=== PATIENT | male | born 1930 | race Caucasian/White ===

== ENCOUNTER 2018-11-25 16:34 | Inpatient (IN) | payer MEDICARE, OTHER ==
[~2018-11-25] VITALS: Ht 170.2 cm; Wt 74.8 kg
--- NOTE | 2018-11-25 16:57 | NUR ---
PT WAS SENT TO ER FROM [facility].
[2018-11-25 17:09] LABS: BASOPHILS # (AUTO) 0.1 K/uL (0.0-8.0); BASOPHILS % (AUTO) 1.2 % (0.0-2.0); EOSINOPHILS # (AUTO) 0.2 K/uL (0.0-0.7); EOSINOPHILS % (AUTO) 2.1 % (0.0-7.0); HEMOGLOBIN 14.3 g/dL (12.5-16.3); LYMPHOCYTES # (AUTO) 1.5 K/uL (20.0-40.0); LYMPHOCYTES % (AUTO) 15.5 % (20.5-51.5); MEAN CORPUSCULAR HGB CONC 33 g/dL (32.5-36.3); MEAN CORPUSCULAR VOLUME 96.3 fL (73.0-96.2); MONOCYTES # (AUTO) 0.8 K/uL (2.0-10.0); MONOCYTES % (AUTO) 8.4 % (0.0-11.0); NEUTROPHILS # (AUTO) 6.9 K/uL (1.8-8.9); NEUTROPHILS % (AUTO) 72.8 % (38.5-71.5); PLATELET COUNT (AUTO) 209 K/uL (152-348); RED BLOOD CELL COUNT(AUTO) 4.46 MIL/uL (4.06-5.63); WHITE BLOOD COUNT (AUTO) 9.4 K/uL (3.6-10.2)
[2018-11-25 17:12] LABS: CARBON DIOXIDE 25 mmol/L (21-32); CHLORIDE 108 mmol/L (98-107); GLUCOSE 109 mg/dL (74-106); POTASSIUM 4.6 mmol/L (3.5-5.1); UREA NITROGEN, BLOOD 24 mg/dL (7-18)
[2018-11-25] MEDS ORDERED: LATA2.5D2 EACHEYE ×2 (17:12)
[2018-11-25] MEDS ORDERED: TAMS-3 PO (17:12)
[2018-11-25] MEDS ORDERED: ONDA4TAB5 PO (17:12)
[2018-11-25] MEDS ORDERED: WARF6TAB23 PO (17:12)
[2018-11-25] MEDS ORDERED: WARF2.5T47 PO (17:12)
[2018-11-25] MEDS ORDERED: LORA-259 PO (17:12)
[2018-11-25] MEDS ORDERED: LEVO25TA9 PO (17:12)
[2018-11-25] MEDS ORDERED: METO50TA16 PO (17:12)
[2018-11-25] MEDS ORDERED: DIVA500T4 PO (17:12)
[2018-11-25] MEDS ORDERED: ATOR20TA PO (17:12)
[2018-11-25] MEDS ORDERED: ALBU2.5V38 IH (17:12)
--- NOTE | 2018-11-25 17:15 | NUR ---
Patient wanded & checked by data security administrator Adrian for contraband/dangerous objects.
[2018-11-25 17:17] LABS: ALANINE AMINOTRANSFERASE 30 U/L (16-63); ALKALINE PHOSPHATASE 66 U/L (50-136); ASPARTATE AMINOTRANSFERASE 20 U/L (15-37); BILIRUBIN,DIRECT 0.1 mg/dL (0.0-0.2); BILIRUBIN,TOTAL 0.5 mg/dL (0.2-1.0)
[2018-11-25 17:18] LABS: ACETAMINOPHEN < 2.0 ug/mL (10-30)
[2018-11-25 17:19] LABS: ETHANOL < 3 MG/DL (0-0)
--- NOTE | 2018-11-25 17:20 | NUR ---
Patient is sleeping, easily arousable by voice, oriented to name only, calm@the moment, pending urine specimen, medical clearance & psych evalaution@this time. No in & out urine catheterization order seen. Dr Zhong notified of possible incontinence.
--- NOTE | 2018-11-25 17:39 | NUR ---
AMIE GALLAGHER, CRISIS GLOBAL PROFESSIONAL, ETA 1900.
--- NOTE | 2018-11-25 18:16 | NUR ---
Dinner tray@bedside.
--- NOTE | 2018-11-25 19:09 | NUR ---
Still for Clem Moore to assess this patient, hands off report given to NANCY Arevalo accordingly
[2018-11-25 19:15] LABS: *BILIRUBIN,URIN NEGATIVE (NEGATIVE); *CLARITY,URINE CLEAR (CLEAR); *COLOR,URINE YELLOW (YELLOW); *KETONES,URINE NEGATIVE (NEGATIVE); *UROBILINOGEN,URINE 0.2 E.U./dl (NORMAL); LEUKOCYTE ESTERASE ,URINE NEGATIVE (NEGATIVE); NITRITE, URINE NEGATIVE (NEGATIVE); UGLUCOSE NEGATIVE (NEGATIVE)
[2018-11-25 19:16] LABS: *BLOOD, URINE TRACE (NEGATIVE)
[2018-11-25 19:26] LABS: *AMPHETAMINE, URINE NEGATIVE (NEGATIVE); *BARBITURATE, URINE NEGATIVE (NEGATIVE); *CANNABINOID, URINE NEGATIVE (NEGATIVE); *COCCAINE, URINE NEGATIVE (NEGATIVE); *OPIATE, URINE NEGATIVE (NEGATIVE); *PHENCYCLIDINE SCREEN,URINE NEGATIVE (NEGATIVE); MUCUS,URINE FEW /LPF (0-FEW); WBC,URINE 0-3 /HPF (0-3)
--- NOTE | 2018-11-25 20:48 | NUR ---
transfered to [facility] via shaye
[2018-11-25] MEDS ORDERED: MAGNESIUM HYDROXIDE 30 ML LIQUID UDC PO PRN (21:00)
[2018-11-25] MEDS ORDERED: ACETAMINOPHEN 325 MG TABLET PO PRN (21:00)
[2018-11-25] MEDS ORDERED: MAG HYDROX/AL HYDROX/SIMETH 30 ML LIQUID UDC PO PRN (21:00)
--- NOTE | 2018-11-25 21:30 | NUR ---
Admission note: Received patient from ED via gurney. Awake but totally confused, disoriented and uncooperative. Multiple attempts made to orient and redirect , but slowly showing signs of escalation. Patient assessed and put in chair where staff could keep patient close and safe. Sleeping pill given to patient with minimal effect. A increase in agitation noted and patient yelling and disrupting unit.
[2018-11-25] MEDS: TEMAZEPAM 7.5 MG CAPSULE PO PRN (22:30)
[2018-11-25 22:44] VITALS: BP 109/70
[2018-11-26] MEDS ORDERED: diphenhydrAMINE 50 MG/1 ML VIAL IM ONE (01:00)
[2018-11-26] MEDS ORDERED: OLANZAPINE 10 MG VIAL IM ONE (01:00)
[2018-11-26] MEDS ORDERED: LORAZEPAM 2 MG/1 ML VIAL IM ONE (01:00)
--- NOTE | 2018-11-26 02:00 | NUR ---
Patient extremely agitated and confused. Trying to hit staff with food tray. Yelling and screaming, paranoid and making statements " get out of here now " and " call the laborer general ". Many attempts made to calm patient. Offered medication and patient refused. MD notified and orders received for an IM injection. Patient tolerated injection well. Continuing to monitor patient for safety and reorient patient to environment.
[2018-11-26 07:30] VITALS: BP 104/74
[2018-11-26] MEDS ORDERED: ONDANSETRON HCL 4 MG TABLET PO PRN (12:00)
[2018-11-26] MEDS ORDERED: ALBUTEROL SULFATE 2.5 MG/3 ML NEBU IH PRN (12:00)
[2018-11-26] MEDS: DIVALPROEX SPRINKLE 125 MG CAP.SPRINK PO SCH ×2 (12:15→20:28)
[2018-11-26] MEDS: QUETIAPINE FUMARATE 25 MG TABLET PO SCH ×2 (12:16→18:26)
--- NOTE | 2018-11-26 13:07 | NUR ---
DC NOTE: Patient is a 87 year old male who currently lives at [facility] [[address], [place] [address]; ]. Per Sayra, patient daughter in law [ ], she would like patient to be in a larger facility where he can "walk around". Patient previously in small, locked unit. garden worker will attempt to find new placement for patient if able to accommodate. garden worker will continue to collaborate with patient, family, and MD on a safe and proper discharge. Addendum: 11/26/18 at 1317 by SONNY PADILLA garden worker spoke with Darshana, case coordinator at [facility], who states that patient is able to return when ready.
[2018-11-26] MEDS: CLONAZEPAM 0.5 MG TABLET PO PRN (15:16)
[2018-11-26 16:00] VITALS: BP 90/54
[2018-11-26] MEDS: METOPROLOL TARTRATE 50 MG TABLET PO SCH (17:00)
--- NOTE | 2018-11-26 18:14 | NUR ---
Gps/Nurse'S Assistant- Patient will be transfer to 3rd floor #306 as MHU overflow. Remains with a sitter for safety.
[2018-11-26] MEDS: WARFARIN SODIUM 5 MG TABLET PO SCH (18:25)
[2018-11-26] MEDS: WARFARIN SODIUM 2 MG TABLET PO SCH (18:26)
[2018-11-26 19:25] VITALS: BP 110/64
--- NOTE | 2018-11-26 19:30 | NUR ---
RECEIVED PATIENT FROM THE DAY SHIFT. PATIENT CAME ON THE UNIT FROM U AT 1850. CURRENTLY IN BED SLEEPING, SITTER AT BEDSIDE. COMFORT AND SAFETY MEASURE ARE IN PLACE.
[2018-11-26 20:15] VITALS: BP 103/41
[2018-11-26] MEDS: ATORVASTATIN 20 MG TABLET PO SCH (20:28)
[2018-11-26] MEDS: LATANOPROST OPHT DROP 2.5 ML BOTTLE EACHEYE SCH (20:45)
[2018-11-26] MEDS ORDERED: WARFARIN SODIUM 2.5 MG TABLET PO SCH (21:00)
--- NOTE | 2018-11-27 04:30 | NUR ---
PATIENT WOKE UP, WANT TO USE THE BATHROOM. UNSTEADY GAIT, SITTER ASSISTED SAFELY TO THE TOILET AND BACK. PATIENT IS ALERT AND ORIENTED TO PERSON ONLY, DOES NOT RECALL COMING TO THE HOSPITAL. DRANK A CUP OF OJ AND WENT TO SLEEP. CALM AND COOPERATIVE. SKIN IS DRY AND INTACT. APPEARS BLIND OR SEVERELY IMPAIRED VISUALLY. SITTER IS PRESENT AT BEDSIDE. COMFORT AND SAFETY MEASURES ARE IN PLACE.
[2018-11-27] MEDS: LEVOTHYROXINE SODIUM 25 MCG TABLET PO SCH (06:13)
--- NOTE | 2018-11-27 06:32 | NUR ---
PATIENT SLEPT THROUGH THE SHIFT. NO ACUTE DISTRESS OBSERVED. SITTER IS AT BEDSIDE. COMFORT AND SAFETY MEASURES PROVIDED.
--- NOTE | 2018-11-27 07:25 | NUR ---
Patient resting comfortably in bed at this time. 1:1 sitter at bedside for safety. No signs of distress. Stable condition at this time. No signs of agitation. Reorientation will be provided as needed throughout shift. Safety measures implemented. Will continue to monitor throughout shift.
[2018-11-27] MEDS: DIVALPROEX SPRINKLE 125 MG CAP.SPRINK PO SCH ×2 (08:23→20:30)
[2018-11-27] MEDS: QUETIAPINE FUMARATE 25 MG TABLET PO SCH ×2 (08:23→16:32)
[2018-11-27] MEDS: TAMSULOSIN HCL 0.4 MG CAP.SR.24H PO SCH (08:24)
[2018-11-27] MEDS: METOPROLOL TARTRATE 50 MG TABLET PO SCH ×2 (08:27→16:33)
[2018-11-27 09:27] VITALS: BP 111/64
[2018-11-27 15:53] VITALS: BP 118/56
[2018-11-27] MEDS: WARFARIN SODIUM 2 MG TABLET PO SCH (16:35)
[2018-11-27] MEDS: WARFARIN SODIUM 5 MG TABLET PO SCH (16:36)
--- NOTE | 2018-11-27 18:22 | NUR ---
Patient resting comfortably in bed at this time. No signs of distress, no agitation, no combativeness, no aggression noted. Stable condition. 1:1 sitter at bedside for safety. Compliant with medical care, medication regimen. Safety measures implemented. Will continue to monitor until end of shift.
[2018-11-27 20:12] VITALS: BP 137/67
[2018-11-27] MEDS: ATORVASTATIN 20 MG TABLET PO SCH (20:30)
[2018-11-27] MEDS: LATANOPROST OPHT DROP 2.5 ML BOTTLE EACHEYE SCH (20:31)
[2018-11-27] MEDS: TEMAZEPAM 7.5 MG CAPSULE PO PRN (22:02)
--- NOTE | 2018-11-27 22:05 | NUR ---
PATIENT GIVEN RESTORIL 7.5MG PO PRN FOR SLEEP. SITTER AT BEDSIDE.
--- NOTE | 2018-11-28 00:40 | NUR ---
PATIENT AWAKE, AGITATED AND RESTLESS. PATIENT GIVEN KLONOPIN 0.25MG PO PRN FOR ANXIETY. SITTER AT BEDSIDE. ALL NEEDS ATTENDED. WILL CONTINUE TO MONITOR AND ASSESS.
[2018-11-28] MEDS: CLONAZEPAM 0.5 MG TABLET PO PRN ×3 (00:41→21:38)
[2018-11-28] MEDS: LEVOTHYROXINE SODIUM 25 MCG TABLET PO SCH (06:06)
--- NOTE | 2018-11-28 06:30 | NUR ---
Pt was brought in to unit from 3rd floor via wheelchair, awake, calm. In no acute sign of distress.
[2018-11-28 07:30] VITALS: BP 100/63
[2018-11-28] MEDS: DIVALPROEX SPRINKLE 125 MG CAP.SPRINK PO SCH ×2 (08:19→20:21)
[2018-11-28] MEDS: TAMSULOSIN HCL 0.4 MG CAP.SR.24H PO SCH (08:19)
[2018-11-28] MEDS: QUETIAPINE FUMARATE 25 MG TABLET PO SCH ×2 (08:19→18:17)
[2018-11-28] MEDS: METOPROLOL TARTRATE 50 MG TABLET PO SCH ×2 (08:20→18:18)
[2018-11-28 16:25] VITALS: BP 122/56
[2018-11-28] MEDS: WARFARIN SODIUM 2 MG TABLET PO SCH (18:15)
[2018-11-28] MEDS: WARFARIN SODIUM 5 MG TABLET PO SCH (18:16)
[2018-11-28] MEDS: LATANOPROST OPHT DROP 2.5 ML BOTTLE EACHEYE SCH (20:20)
[2018-11-28] MEDS: ATORVASTATIN 20 MG TABLET PO SCH (20:20)
[2018-11-28 20:58] VITALS: BP 107/53
[2018-11-29] MEDS: TEMAZEPAM 7.5 MG CAPSULE PO PRN
[2018-11-29] MEDS ORDERED: LORAZEPAM 2 MG/1 ML VIAL IM ONE (01:00)
[2018-11-29] MEDS ORDERED: OLANZAPINE 10 MG VIAL IM ONE (01:00)
--- NOTE | 2018-11-29 01:20 | NUR ---
GPS:CHEMICAL RESTRAIN. AT APPROX 0040, PATIENT WAS NOTED YELLING, SCREAMING, ATTEMPTING TO GET OUT OF THE CHAIR BY HIMSELF, POSING A RISK FOR FALL, WHEN REDIRECTED, HE BECAME AGGRESSIVE AND COMBATIVE. KICKING STAFF, PUSHING THIS NURSE SPECIAL, HE STATED, "I NEED TO GO, I AM NOT SUPPOSED TO BE HERE, I NEED TO GO RIGHT NOW". PO PRN WAS OFFERED, HOWEVER PATIENT REFUSED. PATIENT WAS THEN HELPED WITH AMBULATION AND TOILET; HOWEVER, HE CONTINUE YELLING AND UNABLE TO CONTRACT FOR SAFETY. DR CLINTON WAS PAGED AT APPROX 0055 AND HE CALLED BACK AT APPROX 0057. DR CLINTON WAS NOTIFY OF PATIENT BEHAVIOR AND HE WAS ALSO ADVICE THAT TEMAZEPAM 7.5MG PO PRN WAS GIVEN ONE HOUR BEFORE. A TELEPHONE ORDER WAS OBTAINED TO ADMINISTER ZYPREXA 10MG IM AND ATIVEN 1 MG IM STAT ONE TIME ORDER FOR SEVERE AGITATION. ORDER WAS NOTED AND CARRIED OUT. WILL CONTINUE TO MONITOR.
[2018-11-29] MEDS: LEVOTHYROXINE SODIUM 25 MCG TABLET PO SCH (06:28)
--- NOTE | 2018-11-29 06:33 | NUR ---
Patient is sleeping comfortably in his bed. No distress noted. Comfort and safety measures are in place.
[2018-11-29 07:30] VITALS: BP 134/71
[2018-11-29] MEDS: TAMSULOSIN HCL 0.4 MG CAP.SR.24H PO SCH (08:43)
[2018-11-29] MEDS: QUETIAPINE FUMARATE 25 MG TABLET PO SCH ×3 (08:43→17:21)
[2018-11-29] MEDS: DIVALPROEX SPRINKLE 125 MG CAP.SPRINK PO SCH ×2 (08:43→21:00)
[2018-11-29] MEDS: METOPROLOL TARTRATE 50 MG TABLET PO SCH ×2 (08:44→17:21)
--- NOTE | 2018-11-29 15:50 | NUR ---
Gps/Production Worker- Patient starting to get anxious, pushing lap tray , wanting to get , reviewed safety, unsteady gait and needing 2 staff to assist patient in his care.
[2018-11-29] MEDS: CLONAZEPAM 0.5 MG TABLET PO PRN (15:52)
[2018-11-29 16:00] VITALS: BP 104/58
[2018-11-29] MEDS: WARFARIN SODIUM 2 MG TABLET PO SCH (17:24)
[2018-11-29] MEDS: WARFARIN SODIUM 5 MG TABLET PO SCH (17:24)
[2018-11-29 19:54] VITALS: BP 97/56
[2018-11-29] MEDS: LATANOPROST OPHT DROP 2.5 ML BOTTLE EACHEYE SCH (20:03)
[2018-11-29] MEDS: ATORVASTATIN 20 MG TABLET PO SCH (21:00)
--- NOTE | 2018-11-29 22:00 | NUR ---
Pt's HS medications were held due to increased sedation. VS were stable, but Pt unable to remain awake long enough to take medications. Will continue to monitor.
[2018-11-30] MEDS: LEVOTHYROXINE SODIUM 25 MCG TABLET PO SCH (06:03)
[2018-11-30 07:30] VITALS: BP 114/73
[2018-11-30] MEDS: DIVALPROEX SPRINKLE 125 MG CAP.SPRINK PO SCH ×3 (08:23→17:00)
[2018-11-30] MEDS: METOPROLOL TARTRATE 50 MG TABLET PO SCH ×2 (08:23→16:17)
[2018-11-30] MEDS: QUETIAPINE FUMARATE 25 MG TABLET PO SCH ×3 (08:24→17:02)
[2018-11-30] MEDS: TAMSULOSIN HCL 0.4 MG CAP.SR.24H PO SCH (08:24)
[2018-11-30] MEDS: CLONAZEPAM 0.5 MG TABLET PO PRN (11:50)
[2018-11-30 15:56] VITALS: BP 95/44
[2018-11-30] MEDS: WARFARIN SODIUM 2 MG TABLET PO SCH (17:01)
[2018-11-30] MEDS: WARFARIN SODIUM 5 MG TABLET PO SCH (17:01)
[2018-11-30] MEDS: ATORVASTATIN 20 MG TABLET PO SCH (20:03)
[2018-11-30] MEDS: LATANOPROST OPHT DROP 2.5 ML BOTTLE EACHEYE SCH (20:03)
[2018-11-30 20:17] VITALS: BP 112/64
[2018-12-01] MEDS: LEVOTHYROXINE SODIUM 25 MCG TABLET PO SCH (06:23)
[2018-12-01 07:30] VITALS: BP 101/49
[2018-12-01] MEDS: METOPROLOL TARTRATE 50 MG TABLET PO SCH ×2 (09:00→16:59)
[2018-12-01] MEDS: TAMSULOSIN HCL 0.4 MG CAP.SR.24H PO SCH (09:37)
[2018-12-01] MEDS: QUETIAPINE FUMARATE 25 MG TABLET PO SCH ×3 (09:37→16:59)
[2018-12-01] MEDS: DIVALPROEX SPRINKLE 125 MG CAP.SPRINK PO SCH ×3 (09:37→16:58)
[2018-12-01] MEDS: CLONAZEPAM 0.5 MG TABLET PO PRN ×2 (12:54→20:17)
[2018-12-01 15:59] VITALS: BP 113/68
--- NOTE | 2018-12-01 16:54 | NUR ---
Discharge planning: turntable worker called and spoke with patient [id number], Flower Ayala [[phone]], regarding patient progress and discharge planning. Per Sayra, she is interested in possibly placing patient at [facility] [[address], [place] [address]; ]. turntable worker explained that a referral has been sent and currently waiting response from social work coordinator, Charline. turntable worker further explaiend that if patient is not accepted to [facility], that patient will need to return to [facility] [[address], [place] [address]; ]. Sayra is aware and agreeable with plan. Sayra then expressed emotions regarding patient cognitive decline and Dementia diagnosis. turntable worker provided Sayra with emotional and supportive counseling. turntable worker provided Sayra with Alzheimer/Dementia resources including Alzheimers Association [ ; https://www.alz.org/], Alzheimer's Association [place] Chapter [https://www.alz.org/[place]acentralcoast], and a list of [facility] support groups. Sayra was appreciative of resources. turntable worker will follow-up as needed.
[2018-12-01] MEDS: WARFARIN SODIUM 5 MG TABLET PO SCH (17:02)
[2018-12-01] MEDS: WARFARIN SODIUM 2 MG TABLET PO SCH (17:03)
[2018-12-01 20:08] VITALS: BP 101/39
[2018-12-01] MEDS: ATORVASTATIN 20 MG TABLET PO SCH (20:16)
[2018-12-01] MEDS: LATANOPROST OPHT DROP 2.5 ML BOTTLE EACHEYE SCH (20:16)
[2018-12-01] MEDS: TEMAZEPAM 7.5 MG CAPSULE PO PRN (21:28)
[2018-12-02] MEDS: LEVOTHYROXINE SODIUM 25 MCG TABLET PO SCH (06:39)
[2018-12-02 07:28] LABS: BASOPHILS # (AUTO) 0.1 K/uL (0.0-8.0); BASOPHILS % (AUTO) 0.9 % (0.0-2.0); EOSINOPHILS # (AUTO) 0.3 K/uL (0.0-0.7); EOSINOPHILS % (AUTO) 3.8 % (0.0-7.0); HEMATOCRIT 42.2 % (36.7-47.1); HEMOGLOBIN 14.1 g/dL (12.5-16.3); LYMPHOCYTES # (AUTO) 1.7 K/uL (20.0-40.0); LYMPHOCYTES % (AUTO) 19.5 % (20.5-51.5); MEAN CORPUSCULAR HEMOGLOBIN 32.5 uug (23.8-33.4); MEAN CORPUSCULAR HGB CONC 33 g/dL (32.5-36.3); MEAN CORPUSCULAR VOLUME 97.4 fL (73.0-96.2); MONOCYTES # (AUTO) 0.7 K/uL (2.0-10.0); MONOCYTES % (AUTO) 8.8 % (0.0-11.0); NEUTROPHILS # (AUTO) 5.7 K/uL (1.8-8.9); PLATELET COUNT (AUTO) 172 K/uL (152-348); RED BLOOD CELL COUNT(AUTO) 4.33 MIL/uL (4.06-5.63); WHITE BLOOD COUNT (AUTO) 8.5 K/uL (3.6-10.2)
[2018-12-02 07:30] VITALS: BP 105/58
[2018-12-02 07:36] LABS: CARBON DIOXIDE 26 mmol/L (21-32); CHLORIDE 108 mmol/L (98-107); CREATININE 1.1 mg/dL (0.6-1.3); GLUCOSE 89 mg/dL (74-106); POTASSIUM 4.4 mmol/L (3.5-5.1); UREA NITROGEN, BLOOD 22 mg/dL (7-18)
[2018-12-02] MEDS: DIVALPROEX SPRINKLE 125 MG CAP.SPRINK PO SCH ×3 (08:43→16:08)
[2018-12-02] MEDS: TAMSULOSIN HCL 0.4 MG CAP.SR.24H PO SCH (08:43)
[2018-12-02] MEDS: METOPROLOL TARTRATE 50 MG TABLET PO SCH ×2 (08:45→16:07)
[2018-12-02] MEDS: QUETIAPINE FUMARATE 25 MG TABLET PO SCH ×3 (08:46→16:07)
--- NOTE | 2018-12-02 10:15 | NUR ---
FIREARMS REPORT: pack worker completed and submitted a [employer] firearms report for a 5250 GD certification.
--- NOTE | 2018-12-02 15:32 | NUR ---
patient is sitting in gerichair, no aggressive, or combative behavior noted, tolerated meals and meds very well, no sob, resp even nonlabored,skin warm and dry to touch, kept safe and continue to monitor
[2018-12-02 16:00] VITALS: BP 91/55
[2018-12-02] MEDS: WARFARIN SODIUM 2 MG TABLET PO SCH (16:11)
[2018-12-02] MEDS: WARFARIN SODIUM 5 MG TABLET PO SCH (16:12)
[2018-12-02 20:36] VITALS: BP 108/51
[2018-12-02] MEDS: ATORVASTATIN 20 MG TABLET PO SCH (21:32)
[2018-12-02] MEDS: LATANOPROST OPHT DROP 2.5 ML BOTTLE EACHEYE SCH (21:40)
--- NOTE | 2018-12-02 22:00 | NUR ---
received to care, pleasant upon approach. up in kogn chair for safety. compliant with medications, and snacks. as of 2200, he remains awake. no distress noted. will continue to monitor closely.
--- NOTE | 2018-12-03 00:57 | NUR ---
was assisted to bed at 0030. as of now, he appears to be asleep. no distress noted.
[2018-12-03 00:58] VITALS: BP 117/72
[2018-12-03] MEDS: LEVOTHYROXINE SODIUM 25 MCG TABLET PO SCH (06:48)
[2018-12-03 07:30] VITALS: BP 92/76
--- NOTE | 2018-12-03 08:23 | NUR ---
DC NOTE: Patient will be discharged to [facility] [[place] [address]; ] and transportation will be provided by facility at 3:00pm. Acceptance to facility was received by Charline, sales project coordinator, who states they are ready to accept the patient today. Patient is AxOx1, denies suicidal ideation, is able to plan for self-care, and is agreeable with discharge plan. vineyard worker has called and spoken with patient [id number], Sayra Ayala [[phone]], who is aware and agreeable with discharge plan. Patient will follow-up with Dr. Plummer [psychiatrist] and Dr. Mari [breaker machine operator] at the facility. Patient has also been provided with mental health resources including [facility] [[address], [place] [address]; ], [facility] [ ], and National Suicide Prevention Lifeline [ ].
[2018-12-03] MEDS: TAMSULOSIN HCL 0.4 MG CAP.SR.24H PO SCH (08:52)
[2018-12-03] MEDS: METOPROLOL TARTRATE 50 MG TABLET PO SCH ×2 (08:52→16:21)
[2018-12-03] MEDS: DIVALPROEX SPRINKLE 125 MG CAP.SPRINK PO SCH ×3 (08:52→16:20)
[2018-12-03] MEDS: QUETIAPINE FUMARATE 25 MG TABLET PO SCH ×3 (08:53→16:20)
--- NOTE | 2018-12-03 12:42 | NUR ---
Gps/Human Resource Manager- Discharged planning in progress. Will be discharged to [facility] in [facility] , facility to provide transportation this afternoon arranged for 1500.
[2018-12-03] MEDS: CLONAZEPAM 0.5 MG TABLET PO PRN (14:32)
[2018-12-03 16:21] VITALS: BP 99/60
[2018-12-03] MEDS ORDERED: WARFARIN SODIUM 5 MG TABLET PO SCH (17:00)
[2018-12-03] MEDS ORDERED: WARFARIN SODIUM 2 MG TABLET PO SCH (17:00)
--- NOTE | 2018-12-03 17:00 | NUR ---
Gps/Chemistry Associate- network and threat support specialist time was changed by [facility] at 1800 instead.
--- NOTE | 2018-12-03 18:50 | NUR ---
Gps/Binding Nicker- Called [facility] report was given to Leanne Mancilla ([phone])
--- NOTE | 2018-12-03 19:08 | NUR ---
Gps/Director Women- Medications records/orders pertinent date faxed to [facility] as requested by Leanne Espinoza. Patient was picked up by Sherfi scott. Patient in no distress, all belongings given back to patient.
== END 2018-12-03 19:13 | DRG 885 ==
LOC: ER 16:36 → GPS 20:31 → GPSOV3 11-26 19:13 → GPS 11-28 06:24
PROVIDERS: ADMIT Psychiatry & Neurology Psychiatry
DX: F39 Unspecified mood [affective] disorder (principal); F03.91 Unspecified dementia, unspecified severity, with behavioral disturbance; E44.1 Mild protein-calorie malnutrition; D68.59 Other primary thrombophilia; I48.2 Chronic atrial fibrillation; Z79.01 Long term (current) use of anticoagulants; E78.5 Hyperlipidemia, unspecified; E03.9 Hypothyroidism, unspecified; H54.7 Unspecified visual loss; H40.9 Unspecified glaucoma; Z68.25 Body mass index [BMI] 25.0-25.9, adult; Z79.899 Other long term (current) drug therapy; Z91.81 History of falling; I48.91 Unspecified atrial fibrillation; I10 Essential (primary) hypertension; R79.89 Other specified abnormal findings of blood chemistry
CPT/HCPCS: 36415; 80164; 80307; 85025; 85610; 85730; 93005; 97110; 97116; 97530; A4663; G0480; G0480-TC; J1200; J2060; J2358

== ENCOUNTER 2018-12-07 19:07 | Inpatient (IN) | payer MEDICARE, OTHER ==
[~2018-12-07] VITALS: Ht 167.6 cm; Wt 79.8 kg
[~2018-12-07 19:07] MED LIST: ALBU2.5V38 IH; ATOR20TA PO; LATA2.5D2 EACHEYE; LEVO25TA9 PO; METO50TA16 PO; ONDA4TAB5 PO; TAMS-3 PO; WARF2.5T47 PO; WARF6TAB23 PO
[2018-12-07 19:49] LABS: BASOPHILS # (AUTO) 0.1 K/uL (0.0-8.0); BASOPHILS % (AUTO) 0.8 % (0.0-2.0); EOSINOPHILS # (AUTO) 0.2 K/uL (0.0-0.7); EOSINOPHILS % (AUTO) 2.4 % (0.0-7.0); HEMATOCRIT 44.5 % (36.7-47.1); HEMOGLOBIN 14.7 g/dL (12.5-16.3); LYMPHOCYTES # (AUTO) 2.2 K/uL (20.0-40.0); MEAN CORPUSCULAR HEMOGLOBIN 32.1 uug (23.8-33.4); MEAN CORPUSCULAR HGB CONC 33 g/dL (32.5-36.3); MEAN CORPUSCULAR VOLUME 97.1 fL (73.0-96.2); NEUTROPHILS # (AUTO) 5.3 K/uL (1.8-8.9); NEUTROPHILS % (AUTO) 60.8 % (38.5-71.5); PLATELET COUNT (AUTO) 186 K/uL (152-348); RED BLOOD CELL COUNT(AUTO) 4.58 MIL/uL (4.06-5.63); WHITE BLOOD COUNT (AUTO) 8.8 K/uL (3.6-10.2)
[2018-12-07] MEDS ORDERED: BISA10SU12 RC (19:55)
[2018-12-07] MEDS ORDERED: QUET25TA PO (19:55)
[2018-12-07] MEDS ORDERED: MAGN400O6 PO (19:55)
[2018-12-07] MEDS ORDERED: ACET325T53 PO (19:55)
[2018-12-07] MEDS ORDERED: NA P133E RC (19:55)
[2018-12-07] MEDS ORDERED: LEVO25TA9 PO (19:55)
[2018-12-07] MEDS ORDERED: ATOR20TA PO (19:55)
[2018-12-07] MEDS ORDERED: LATA2.5D7 OP (19:55)
[2018-12-07] MEDS ORDERED: TAMS-3 PO (19:55)
[2018-12-07] MEDS ORDERED: LORA2VIA33 IM (19:55)
[2018-12-07] MEDS ORDERED: LORA-258 PO (19:55)
[2018-12-07] MEDS ORDERED: METO50TA16 PO (19:55)
[2018-12-07] MEDS ORDERED: DIVA125C2 PO (19:55)
[2018-12-07] MEDS ORDERED: DOCU-141 PO (19:55)
[2018-12-07 19:56] LABS: *BILIRUBIN,URIN NEGATIVE (NEGATIVE); *BLOOD, URINE 1+ (NEGATIVE); *CLARITY,URINE CLEAR (CLEAR); *COLOR,URINE YELLOW (YELLOW); *KETONES,URINE NEGATIVE (NEGATIVE); LEUKOCYTE ESTERASE ,URINE NEGATIVE (NEGATIVE); NITRITE, URINE NEGATIVE (NEGATIVE); PH,URINE 5.5 (5.0-8.0); UGLUCOSE NEGATIVE (NEGATIVE)
[2018-12-07 19:57] LABS: CARBON DIOXIDE 28 mmol/L (21-32); CHLORIDE 105 mmol/L (98-107); CREATININE 1.1 mg/dL (0.6-1.3); GLUCOSE 92 mg/dL (74-106); POTASSIUM 4.2 mmol/L (3.5-5.1); UREA NITROGEN, BLOOD 21 mg/dL (7-18)
[2018-12-07 20:03] LABS: ACETAMINOPHEN < 2.0 ug/mL (10-30); ALANINE AMINOTRANSFERASE 27 U/L (16-63); ALKALINE PHOSPHATASE 83 U/L (50-136); ASPARTATE AMINOTRANSFERASE 22 U/L (15-37); BILIRUBIN,DIRECT 0.2 mg/dL (0.0-0.2); BILIRUBIN,TOTAL 0.6 mg/dL (0.2-1.0); TOTAL PROTEIN, SERUM 7.8 g/dL (6.4-8.2)
[2018-12-07 20:04] LABS: ETHANOL < 3 MG/DL (0-0)
[2018-12-07 20:05] LABS: *AMPHETAMINE, URINE NEGATIVE (NEGATIVE); *BARBITURATE, URINE NEGATIVE (NEGATIVE); *CANNABINOID, URINE NEGATIVE (NEGATIVE); *COCCAINE, URINE NEGATIVE (NEGATIVE); *OPIATE, URINE NEGATIVE (NEGATIVE); *PHENCYCLIDINE SCREEN,URINE NEGATIVE (NEGATIVE); WBC,URINE 0-3 /HPF (0-3)
[2018-12-07 20:06] LABS: BACTERIA,URINE FEW /HPF (NONE SEEN); SQUAMOUS EPITHELIAL CELL,UR NONE SEEN /HPF (NONE SEEN)
[2018-12-07] MEDS ORDERED: MAG HYDROX/AL HYDROX/SIMETH 30 ML LIQUID UDC PO PRN (23:00)
[2018-12-07] MEDS ORDERED: MAGNESIUM HYDROXIDE 30 ML LIQUID UDC PO PRN (23:00)
[2018-12-07 23:45] VITALS: BP 142/98
[2018-12-07 23:54] VITALS: BP 142/98
[2018-12-08] MEDS: CLONAZEPAM 0.5 MG TABLET PO PRN ×2 (00:38→19:48)
[2018-12-08 07:30] VITALS: BP 128/78
[2018-12-08] MEDS ORDERED: BISACODYL 10 MG SUPP.RECT RC PRN (10:30)
[2018-12-08] MEDS ORDERED: FLEET ENEMA 133 ML BOTTLE RC PRN (10:30)
[2018-12-08] MEDS: LEVOTHYROXINE SODIUM 25 MCG TABLET PO SCH (12:00)
[2018-12-08] MEDS: METOPROLOL TARTRATE 50 MG TABLET PO SCH ×2 (12:56→21:00)
[2018-12-08 15:11] VITALS: BP 114/54
[2018-12-08] MEDS: QUETIAPINE FUMARATE 25 MG TABLET PO SCH (16:41)
[2018-12-08] MEDS: DIVALPROEX 250 MG TABLET.DR PO SCH ×2 (16:41→20:26)
[2018-12-08] MEDS: LATANOPROST OPHT DROP 2.5 ML BOTTLE EACHEYE SCH (20:25)
[2018-12-08] MEDS: ATORVASTATIN 20 MG TABLET PO SCH (20:26)
[2018-12-08] MEDS: TAMSULOSIN HCL 0.4 MG CAP.SR.24H PO SCH (20:26)
[2018-12-08 20:55] VITALS: BP 111/63
[2018-12-08] MEDS: TEMAZEPAM 7.5 MG CAPSULE PO PRN (21:40)
[2018-12-09] MEDS: LEVOTHYROXINE SODIUM 25 MCG TABLET PO SCH (06:38)
[2018-12-09] MEDS: CLONAZEPAM 0.5 MG TABLET PO PRN ×2 (06:39→22:27)
[2018-12-09 07:18] VITALS: BP 113/60
[2018-12-09] MEDS: DIVALPROEX 250 MG TABLET.DR PO SCH ×3 (08:14→21:00)
[2018-12-09] MEDS: QUETIAPINE FUMARATE 25 MG TABLET PO SCH ×2 (08:14→16:57)
[2018-12-09] MEDS: DOCUSATE SODIUM 100 MG CAPSULE PO SCH (08:14)
[2018-12-09] MEDS: METOPROLOL TARTRATE 50 MG TABLET PO SCH ×2 (08:15→21:00)
[2018-12-09 16:19] VITALS: BP 92/50
[2018-12-09 19:55] VITALS: BP 100/54
[2018-12-09] MEDS: LATANOPROST OPHT DROP 2.5 ML BOTTLE EACHEYE SCH (21:00)
[2018-12-09] MEDS: ATORVASTATIN 20 MG TABLET PO SCH (21:00)
[2018-12-09] MEDS: TAMSULOSIN HCL 0.4 MG CAP.SR.24H PO SCH (21:00)
[2018-12-10] MEDS: LEVOTHYROXINE SODIUM 25 MCG TABLET PO SCH (06:49)
[2018-12-10 07:30] VITALS: BP 117/64
[2018-12-10] MEDS: QUETIAPINE FUMARATE 25 MG TABLET PO SCH ×2 (08:20→17:09)
[2018-12-10] MEDS: DOCUSATE SODIUM 100 MG CAPSULE PO SCH (08:20)
[2018-12-10] MEDS: METOPROLOL TARTRATE 50 MG TABLET PO SCH ×2 (08:21→21:00)
[2018-12-10] MEDS: DIVALPROEX 250 MG TABLET.DR PO SCH ×3 (08:21→20:28)
[2018-12-10 16:08] VITALS: BP 97/56
[2018-12-10 20:09] VITALS: BP 122/60
[2018-12-10] MEDS: CLONAZEPAM 0.5 MG TABLET PO PRN (20:19)
[2018-12-10] MEDS: LATANOPROST OPHT DROP 2.5 ML BOTTLE EACHEYE SCH (20:27)
[2018-12-10] MEDS: ATORVASTATIN 20 MG TABLET PO SCH (20:28)
[2018-12-10] MEDS: TAMSULOSIN HCL 0.4 MG CAP.SR.24H PO SCH (20:29)
[2018-12-10] MEDS: TEMAZEPAM 7.5 MG CAPSULE PO PRN (23:51)
[2018-12-11] MEDS: CLONAZEPAM 0.5 MG TABLET PO PRN ×2 (04:24→22:09)
[2018-12-11] MEDS: LEVOTHYROXINE SODIUM 25 MCG TABLET PO SCH (06:16)
[2018-12-11 07:30] VITALS: BP 99/55
[2018-12-11] MEDS: METOPROLOL TARTRATE 50 MG TABLET PO SCH ×2 (08:10→21:05)
[2018-12-11] MEDS: QUETIAPINE FUMARATE 25 MG TABLET PO SCH ×3 (08:10→16:05)
[2018-12-11] MEDS: DOCUSATE SODIUM 100 MG CAPSULE PO SCH (08:10)
[2018-12-11] MEDS: DIVALPROEX 250 MG TABLET.DR PO SCH ×3 (08:10→20:05)
[2018-12-11 16:00] VITALS: BP 116/61
[2018-12-11] MEDS: ATORVASTATIN 20 MG TABLET PO SCH (20:05)
[2018-12-11] MEDS: TAMSULOSIN HCL 0.4 MG CAP.SR.24H PO SCH (20:05)
[2018-12-11] MEDS: LATANOPROST OPHT DROP 2.5 ML BOTTLE EACHEYE SCH (20:05)
[2018-12-11 20:09] VITALS: BP 120/40
[2018-12-11] MEDS: TEMAZEPAM 7.5 MG CAPSULE PO PRN (21:05)
[2018-12-12] MEDS: LEVOTHYROXINE SODIUM 25 MCG TABLET PO SCH (06:35)
[2018-12-12] MEDS: DOCUSATE SODIUM 100 MG CAPSULE PO SCH (09:55)
[2018-12-12] MEDS: DIVALPROEX 250 MG TABLET.DR PO SCH ×3 (09:56→20:50)
[2018-12-12] MEDS: QUETIAPINE FUMARATE 25 MG TABLET PO SCH ×3 (09:56→17:28)
[2018-12-12] MEDS: METOPROLOL TARTRATE 50 MG TABLET PO SCH ×2 (09:57→20:55)
[2018-12-12] MEDS: CLONAZEPAM 0.5 MG TABLET PO PRN (11:26)
[2018-12-12 11:57] VITALS: BP 97/57
[2018-12-12 16:05] VITALS: BP 91/50
[2018-12-12 19:30] VITALS: BP 88/48
[2018-12-12 20:48] VITALS: BP 117/65
[2018-12-12] MEDS: ATORVASTATIN 20 MG TABLET PO SCH (20:50)
[2018-12-12] MEDS: TAMSULOSIN HCL 0.4 MG CAP.SR.24H PO SCH (20:50)
[2018-12-12] MEDS: LATANOPROST OPHT DROP 2.5 ML BOTTLE EACHEYE SCH (20:50)
[2018-12-12] MEDS: TEMAZEPAM 7.5 MG CAPSULE PO PRN (22:37)
[2018-12-13] MEDS: LEVOTHYROXINE SODIUM 25 MCG TABLET PO SCH (07:00)
[2018-12-13 07:30] VITALS: BP 119/52
[2018-12-13] MEDS: METOPROLOL TARTRATE 50 MG TABLET PO SCH ×2 (09:00→20:19)
[2018-12-13] MEDS: DOCUSATE SODIUM 100 MG CAPSULE PO SCH (09:22)
[2018-12-13] MEDS: QUETIAPINE FUMARATE 25 MG TABLET PO SCH ×3 (09:22→16:54)
[2018-12-13] MEDS: DIVALPROEX 250 MG TABLET.DR PO SCH ×3 (10:17→20:19)
[2018-12-13] MEDS: CLONAZEPAM 0.5 MG TABLET PO PRN ×2 (10:58→19:57)
[2018-12-13 15:48] VITALS: BP 107/51
[2018-12-13] MEDS: ATORVASTATIN 20 MG TABLET PO SCH (20:19)
[2018-12-13] MEDS: TAMSULOSIN HCL 0.4 MG CAP.SR.24H PO SCH (20:19)
[2018-12-13] MEDS: LATANOPROST OPHT DROP 2.5 ML BOTTLE EACHEYE SCH (20:34)
[2018-12-13 20:35] VITALS: BP 101/52
[2018-12-13] MEDS: TEMAZEPAM 7.5 MG CAPSULE PO PRN (21:16)
[2018-12-14] MEDS: LEVOTHYROXINE SODIUM 25 MCG TABLET PO SCH ×2 (07:00→07:03)
[2018-12-14 07:30] VITALS: BP 105/54
[2018-12-14] MEDS: DOCUSATE SODIUM 100 MG CAPSULE PO SCH (08:30)
[2018-12-14] MEDS: QUETIAPINE FUMARATE 25 MG TABLET PO SCH ×4 (08:30→17:49)
[2018-12-14] MEDS: DIVALPROEX 250 MG TABLET.DR PO SCH (08:45)
[2018-12-14] MEDS: CLONAZEPAM 0.5 MG TABLET PO PRN ×2 (08:45→13:21)
[2018-12-14] MEDS: METOPROLOL TARTRATE 50 MG TABLET PO SCH ×2 (09:00→20:34)
[2018-12-14] MEDS ORDERED: DIVALPROEX 250 MG TABLET.DR PO ONE (09:45)
[2018-12-14 15:43] VITALS: BP 102/50
[2018-12-14 20:03] VITALS: BP 93/42
[2018-12-14] MEDS: DIVALPROEX 500 MG TABLET.DR PO SCH (20:29)
[2018-12-14] MEDS: ATORVASTATIN 20 MG TABLET PO SCH (20:29)
[2018-12-14] MEDS: TAMSULOSIN HCL 0.4 MG CAP.SR.24H PO SCH (20:29)
[2018-12-14] MEDS: LATANOPROST OPHT DROP 2.5 ML BOTTLE EACHEYE SCH (20:30)
[2018-12-15] MEDS: LEVOTHYROXINE SODIUM 25 MCG TABLET PO SCH (07:00)
[2018-12-15 07:30] VITALS: BP 112/64
[2018-12-15] MEDS: DOCUSATE SODIUM 100 MG CAPSULE PO SCH (08:25)
[2018-12-15] MEDS: DIVALPROEX 500 MG TABLET.DR PO SCH ×2 (08:25→20:23)
[2018-12-15] MEDS: QUETIAPINE FUMARATE 25 MG TABLET PO SCH ×3 (08:25→16:00)
[2018-12-15] MEDS: METOPROLOL TARTRATE 50 MG TABLET PO SCH ×2 (08:26→20:24)
[2018-12-15] MEDS: CLONAZEPAM 0.5 MG TABLET PO PRN ×2 (10:44→15:41)
[2018-12-15 15:34] VITALS: BP 93/50
[2018-12-15 20:01] VITALS: BP 106/59
[2018-12-15] MEDS: LATANOPROST OPHT DROP 2.5 ML BOTTLE EACHEYE SCH (20:23)
[2018-12-15] MEDS: TAMSULOSIN HCL 0.4 MG CAP.SR.24H PO SCH (20:23)
[2018-12-15] MEDS: ATORVASTATIN 20 MG TABLET PO SCH (20:23)
[2018-12-16] MEDS: CLONAZEPAM 0.5 MG TABLET PO PRN ×2 (02:20→07:35)
[2018-12-16] MEDS: LEVOTHYROXINE SODIUM 25 MCG TABLET PO SCH (06:18)
[2018-12-16 07:30] VITALS: BP 108/80
[2018-12-16] MEDS: DIVALPROEX 500 MG TABLET.DR PO SCH (08:00)
[2018-12-16] MEDS: DOCUSATE SODIUM 100 MG CAPSULE PO SCH (08:00)
[2018-12-16] MEDS: QUETIAPINE FUMARATE 25 MG TABLET PO SCH (08:00)
[2018-12-16 08:01] VITALS: BP 108/80
[2018-12-16] MEDS: METOPROLOL TARTRATE 50 MG TABLET PO SCH (08:01)
== END 2018-12-16 11:10 | DRG 885 ==
LOC: ER 19:09 → GPS 23:22
PROVIDERS: ADMIT Psychiatry & Neurology Psychiatry; ATTEND Internal Medicine
DX: F39 Unspecified mood [affective] disorder (principal); F03.91 Unspecified dementia, unspecified severity, with behavioral disturbance; D68.59 Other primary thrombophilia; E44.1 Mild protein-calorie malnutrition; F41.9 Anxiety disorder, unspecified; H40.9 Unspecified glaucoma; H54.7 Unspecified visual loss; I48.91 Unspecified atrial fibrillation; Z68.28 Body mass index [BMI] 28.0-28.9, adult; N40.0 Benign prostatic hyperplasia without lower urinary tract symptoms; I11.9 Hypertensive heart disease without heart failure; Z91.81 History of falling; E03.9 Hypothyroidism, unspecified; Z79.890 Hormone replacement therapy; Z79.01 Long term (current) use of anticoagulants; E78.00 Pure hypercholesterolemia, unspecified; I45.4 Nonspecific intraventricular block
CPT/HCPCS: 36415; 70030-TC; 71045; 80164; 80307; 84443; 85025; 85730; 87086; 93005; 97110; 97112; 97116; 97530; A4663; G0480; G0480-TC; J3490